=== PATIENT | female | born 2000 | race African-American/Black ===

== ENCOUNTER 2021-10-16 00:55 | Emergency (ER) | payer MEDICAID ==
[~2021-10-16] VITALS: Ht 157.5 cm; Wt 59.0 kg
[2021-10-16 02:29] VITALS: BP 127/75
== END 2021-10-16 04:15 | disposition home or self-care (01) ==
LOC: ER 01:09
DX: S61.213A Laceration without foreign body of left middle finger without damage to nail, initial encounter (principal); W25.XXXA Contact with sharp glass, initial encounter; Y93.89 Activity, other specified; Y92.89 Other specified places as the place of occurrence of the external cause; Y99.8 Other external cause status
CPT/HCPCS: 12001; 73140; 99283; A6403